=== PATIENT | male | born 1955 | race Caucasian/White ===

== ENCOUNTER 2017-01-01 21:35 | Inpatient (IN) | payer OTHER ==
[~2017-01-01] VITALS: Ht 160 cm; Wt 60.4 kg
[~2017-01-01 21:35] MED LIST: ATI1 PO; FOL1 PO; LAC PO; LEVAQUIN750 MG PO; THI100 PO
[2017-01-01 22:43] LABS: PLATELET COUNT 171 x10^3mcL (130-400)
[2017-01-01 22:45] LABS: ALBUMIN 4.8 g/dL (3.4-5.0); BILIRUBIN TOTAL 0.5 mg/dL (0.20-1.00); CALCIUM 9.3 mg/dL (8.5-10.1); CARBON DIOXIDE 10.1 mmol/L (21-32); CREATININE SERUM 1.8 mg/dL (0.7-1.3); POTASSIUM SERUM 4.1 mmol/L (3.5-5.1)
[2017-01-01 22:47] LABS: TOTAL PROTEIN, SERUM 10.3 g/dL (6.4-8.2)
[2017-01-01 22:48] LABS: BASOPHIL % 0 % (0-2); RED CELL DISTRIBUTION WIDTH 15.6 % (11.5-14.5)
[2017-01-02 00:28] LABS: UA SPECIFIC GRAVITY >=1.030 (1.005-1.035); microscopic required? YES; urine erythrocyte 1+ (NEGATIVE)
[2017-01-02 02:30] LABS: AMPHETAMINE QUAL UR NONE DETECTED (NEG <=1000)
[2017-01-02 03:01] VITALS: BP 130/87
[2017-01-02 03:07] VITALS: BP 130/87
[2017-01-02 03:40] LABS: FREE T4 0.58 ng/dL (0.76-1.46)
[2017-01-02 03:46] LABS: CHOLESTEROL/HDL RATIO 1.8; T4(THYROXINE) 3.2 ug/dL (4.7-13.3)
[2017-01-02 04:06] LABS: T3 TOTAL 0.65 ng/mL
[2017-01-02 05:16] VITALS: BP 121/81
[2017-01-02 06:29] LABS: BASOPHIL % 0.1 % (0-2)
[2017-01-02 06:32] LABS: CALCIUM 7.6 mg/dL (8.5-10.1); CARBON DIOXIDE 22.2 mmol/L (21-32); CREATININE SERUM 1.5 mg/dL (0.7-1.3); MAGNESIUM 1.4 mg/dL (1.8-2.4); PHOSPHOROUS 1.6 mg/dL (2.5-4.9); POTASSIUM SERUM 4.3 mmol/L (3.5-5.1)
[2017-01-02 06:58] LABS: PLATELET COUNT 118 x10^3mcL (130-400); RED CELL DISTRIBUTION WIDTH 15.1 % (11.5-14.5)
[2017-01-02 07:54] VITALS: BP 120/77
[2017-01-02 16:20] VITALS: BP 97/55
[2017-01-02 21:24] VITALS: BP 119/66
[2017-01-03 05:45] VITALS: BP 102/66
[2017-01-03 07:13] LABS: BASOPHIL % 0.2 % (0-2)
[2017-01-03 07:21] LABS: PLATELET COUNT 94 x10^3mcL (130-400); RED CELL DISTRIBUTION WIDTH 15.7 % (11.5-14.5)
[2017-01-03 07:24] LABS: CALCIUM 8.2 mg/dL (8.5-10.1); CHLORIDE SERUM 106 mmol/L (98-107); CREATININE SERUM 1.3 mg/dL (0.7-1.3); GFR1 > 60 mL/min; GLUCOSE SERUM 71 mg/dL (74-106); MAGNESIUM 2.4 mg/dL (1.8-2.4); PHOSPHOROUS 2.2 mg/dL (2.5-4.9); POTASSIUM SERUM 3.5 mmol/L (3.5-5.1); SODIUM SERUM 142 mmol/L (136-145)
[2017-01-03 08:58] VITALS: BP 113/75
[2017-01-03 10:57] VITALS: Ht 160 cm; Wt 60.4 kg
[2017-01-03 13:39] VITALS: BP 116/70
[2017-01-03 18:15] VITALS: BP 129/78
[2017-01-04 06:22] VITALS: BP 138/83
[2017-01-04 06:45] LABS: BASOPHIL % 0.4 % (0-2)
[2017-01-04 06:53] LABS: PLATELET COUNT 93 x10^3mcL (130-400); RED CELL DISTRIBUTION WIDTH 15.9 % (11.5-14.5)
[2017-01-04 07:03] LABS: CALCIUM 8.1 mg/dL (8.5-10.1); CARBON DIOXIDE 20.9 mmol/L (21-32); CHLORIDE SERUM 104 mmol/L (98-107); CREATININE SERUM 1.1 mg/dL (0.7-1.3); GFR1 > 60 mL/min; GLUCOSE SERUM 87 mg/dL (74-106); MAGNESIUM 1.8 mg/dL (1.8-2.4); PHOSPHOROUS 2.2 mg/dL (2.5-4.9); POTASSIUM SERUM 3.3 mmol/L (3.5-5.1); SODIUM SERUM 137 mmol/L (136-145)
[2017-01-04 17:21] VITALS: BP 149/88
[2017-01-04 20:07] VITALS: BP 140/90
[2017-01-05 05:22] VITALS: BP 149/91
[2017-01-05 06:21] LABS: CALCIUM 8.3 mg/dL (8.5-10.1); CARBON DIOXIDE 21.3 mmol/L (21-32); CHLORIDE SERUM 107 mmol/L (98-107); CREATININE SERUM 1.2 mg/dL (0.7-1.3); GFR1 > 60 mL/min; GLUCOSE SERUM 84 mg/dL (74-106); MAGNESIUM 1.6 mg/dL (1.8-2.4); PHOSPHOROUS 2.7 mg/dL (2.5-4.9); POTASSIUM SERUM 3.4 mmol/L (3.5-5.1); SODIUM SERUM 142 mmol/L (136-145)
[2017-01-05 06:31] LABS: BASOPHIL % 0.3 % (0-2)
[2017-01-05 06:52] LABS: PLATELET COUNT 115 x10^3mcL (130-400); RED CELL DISTRIBUTION WIDTH 15.5 % (11.5-14.5)
[2017-01-05 09:34] VITALS: BP 152/86
[2017-01-05 14:00] VITALS: BP 136/78
[2017-01-05 17:54] VITALS: BP 129/78
[2017-01-05 19:50] VITALS: BP 133/78
[2017-01-06 06:37] VITALS: BP 131/74
[2017-01-06 06:40] LABS: BASOPHIL % 0.4 % (0-2)
[2017-01-06 06:46] LABS: CALCIUM 7.7 mg/dL (8.5-10.1); CARBON DIOXIDE 19.9 mmol/L (21-32); CHLORIDE SERUM 106 mmol/L (98-107); CREATININE SERUM 1.2 mg/dL (0.7-1.3); GFR1 > 60 mL/min; GLUCOSE SERUM 90 mg/dL (74-106); MAGNESIUM 1.8 mg/dL (1.8-2.4); PHOSPHOROUS 3.2 mg/dL (2.5-4.9); POTASSIUM SERUM 3.2 mmol/L (3.5-5.1); SODIUM SERUM 139 mmol/L (136-145)
[2017-01-06 07:27] LABS: PLATELET COUNT 129 x10^3mcL (130-400); RED CELL DISTRIBUTION WIDTH 15.2 % (11.5-14.5)
[2017-01-06 10:11] VITALS: BP 120/80
[2017-01-06 17:28] VITALS: BP 152/92
[2017-01-06 21:58] VITALS: BP 151/87
[2017-01-07 06:44] VITALS: BP 154/84
[2017-01-07 06:53] LABS: BASOPHIL % 0.5 % (0-2); PLATELET COUNT 168 x10^3mcL (130-400); RED CELL DISTRIBUTION WIDTH 15.2 % (11.5-14.5)
[2017-01-07 07:26] LABS: CALCIUM 7.9 mg/dL (8.5-10.1); CARBON DIOXIDE 19.2 mmol/L (21-32); CHLORIDE SERUM 108 mmol/L (98-107); CREATININE SERUM 1.2 mg/dL (0.7-1.3); GFR1 > 60 mL/min; GLUCOSE SERUM 81 mg/dL (74-106); POTASSIUM SERUM 3.2 mmol/L (3.5-5.1); SODIUM SERUM 141 mmol/L (136-145)
[2017-01-07 08:57] VITALS: BP 145/90
[2017-01-07 14:01] VITALS: BP 141/87
[2017-01-07 17:08] VITALS: BP 140/89
[2017-01-08 05:23] VITALS: BP 155/88
[2017-01-08 06:46] LABS: CARBON DIOXIDE 19.8 mmol/L (21-32); CHLORIDE SERUM 107 mmol/L (98-107); CREATININE SERUM 1.3 mg/dL (0.7-1.3); GFR1 > 60 mL/min; GLUCOSE SERUM 86 mg/dL (74-106); POTASSIUM SERUM 3.2 mmol/L (3.5-5.1); SODIUM SERUM 140 mmol/L (136-145)
[2017-01-08 10:13] VITALS: BP 141/83
[2017-01-08 13:57] VITALS: BP 153/81
[2017-01-08] MEDS ORDERED: LORAZEPAM1 MG PO (16:34)
[2017-01-08] MEDS ORDERED: FOL1 PO (16:41)
[2017-01-08] MEDS ORDERED: B-1100 MG PO (16:42)
[2017-01-08 21:19] VITALS: BP 162/92
[2017-01-09 06:06] VITALS: BP 146/88
[2017-01-09 10:02] VITALS: BP 146/88
[2017-01-09 10:29] VITALS: BP 145/81
[2017-01-09 13:33] VITALS: BP 142/89
[2017-01-09] MEDS ORDERED: CYCLOBENZAPRINE10 MG PO (15:20)
[2017-01-09] MEDS ORDERED: LEVAQUIN750 MG PO (15:21)
== END 2017-01-09 22:25 | DRG 775 ==
LOC: ED 21:35 → DU 01-02 01:22 → MU 01-02 01:22 → DU 01-02 02:30 → MU 01-04 11:47 → DU 01-05 10:25
PROVIDERS: Emergency Medicine; Family Medicine; ADMIT Family Medicine
DX: F10.239 Alcohol dependence with withdrawal, unspecified (principal); N17.0 Acute kidney failure with tubular necrosis; G92 Toxic encephalopathy; K85.20 Alcohol induced acute pancreatitis without necrosis or infection; E87.2 Acidosis; N39.0 Urinary tract infection, site not specified; M32.9 Systemic lupus erythematosus, unspecified; E83.39 Other disorders of phosphorus metabolism; I48.91 Unspecified atrial fibrillation; E86.0 Dehydration; I10 Essential (primary) hypertension; K52.9 Noninfective gastroenteritis and colitis, unspecified; R00.0 Tachycardia, unspecified; E86.1 Hypovolemia; D64.9 Anemia, unspecified; Y90.9 Presence of alcohol in blood, level not specified; E87.6 Hypokalemia; I70.0 Atherosclerosis of aorta; K29.70 Gastritis, unspecified, without bleeding; E02 Subclinical iodine-deficiency hypothyroidism; M17.0 Bilateral primary osteoarthritis of knee
CPT/HCPCS: 36600; 82962; 83880; 84439; 97110-GP; 97116-GP; 97530-GP; G0480; J0696; J1630; J1885; J2060; J2405; J3230; J3475; J3480; J3490; J7030; J7042; J7050; Q0092; Q0161